=== PATIENT | female | born 1980 | race Caucasian/White ===

== ENCOUNTER 2018-12-14 16:15 | Inpatient (IN) ==
[2018-12-14 17:20] LABS: Basophils # (Auto) 0 K/mcL (0.0-0.3); Basophils % (Auto) 0.1 % (0.0-2.0); Eosinophils # (Auto) 0.1 K/mcL (0.0-0.7); Eosinophils % (Auto) 0.6 % (0.0-7.0); Granulocytes % (Auto) 76.2 % (38.0-78.0); Hematocrit 39.5 % (36.0-48.0); Hemoglobin 12.9 g/dL (12.0-15.0); Lymphocytes # (Auto) 3.5 K/mcL (1.5-4.8); Lymphocytes % (Auto) 18.4 % (15.5-49.0); Mean Cell Volume 91.9 fL (80.0-100.0); Mean Corpuscular HGB Conc 32.8 g/dL (31.0-36.0); Mean Platelet Volume 8.3 fL (7.4-10.4); Monocytes # (Auto) 0.9 K/mcL (0.1-0.9); Monocytes % (Auto) 4.7 % (1.0-12.0); Platelet Count 476 K/mcL (140-440); Red Cell Distribution Width 14.2 % (11.5-14.5); WBC 19.3 K/mcL (4.5-11.0)
[2018-12-14 17:29] LABS: ALT/SGPT 24 U/l (0-40); AST/SGOT 27 U/l (0-37); Albumin 4.3 gm/dL (3.2-5.2); Albumin/Globulin Ratio 1.3 (1.0-2.3); Alkaline Phosphatase 68 U/L (39-117); Bilirubin,Total 0.2 mg/dL (0.0-1.0); Blood Urea Nitrogen 11 mg/dl (6-20); Calcium 9.1 mg/dl (8.6-10.4); Carbon Dioxide 21 mmol/L (22-30); Chloride 104 mmol/L (96-108); Globulin 3.4 gm/dL (2.2-3.7); Glomerular Filtration Rate 111; Glucose 104 mg/dL (70-105); Potassium 4.2 mmol/L (3.3-5.1); Sodium 138 mmol/L (133-145)
[2018-12-14] MEDS: HYDROmorphone 2 MG/ML VIAL IV PRN ×2 (17:53→18:15)
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
[2018-12-14] MEDS ORDERED: PROMETHAZINE 50 MG/ML AMPUL IM ONE (18:28)
[2018-12-14] MEDS ORDERED: PROMETHAZINE 25 MG/ML VIAL IV ONE (18:30)
--- NOTE | 2018-12-14 18:47 | Cat Scan Report ---
CLINICAL INFORMATION: Trauma - closed head injury COMPARISON: None. TECHNIQUE: 2.5 mm helical slices were obtained in the skull base to vertex. Following reconstruction, axial reformatted images were reviewed at bone and parenchymal windows. The exam was performed using radiation dose optimization techniques including, but not limited to, automated exposure control, adjustment of the mA and/or kV according to patient size and use of iterative reconstruction technique. FINDINGS: The ventricles, sulci, fissures, and cisterns are normal in size and configuration. No extra-axial fluid collections are identified. The cerebrum, brainstem and cerebellum are unremarkable. There is no evidence of hemorrhage, mass effect, or edema. Bone windows show no osseous abnormality. IMPRESSION: Normal head CT without contrast. Interpreted and Authenticated by: Jabier Benitez 12/14/18
--- NOTE | 2018-12-14 18:52 | Cat Scan Report ---
CLINICAL INFORMATION: Trauma COMPARISON: None. TECHNIQUE: 2.5 mm helical slices were obtained from the skull base through the superior T2 end plate. Following reconstruction, 2.5 mm sagittal, coronal and axial reformations , with and without disc space angling, were processed. The exam was reviewed at bone and soft tissue windows. The exam was performed using radiation dose optimization techniques including, but not limited to, automated exposure control, adjustment of the mA and/or kV according to patient size and use of iterative reconstruction technique. FINDINGS: Sagittal and coronal reformatted images show the cervical spine to be anatomically aligned. There is no fracture or other osseous abnormality. The cervical cord is normal in contour and caliber without focal lesion. The soft tissues are normal. At C5-6, moderate broad disc spur complex results in moderate central canal and mild right lateral recess narrowing. There is only minimal central bulging of the other disc levels. IMPRESSION: No fracture or other posttraumatic change. Mild degeneration. Lung apices show a small right pneumothorax is involved chest CT report Interpreted and Authenticated by: Jabier Benitez 12/14/18
--- NOTE | 2018-12-14 19:07 | Cat Scan Report ---
CLINICAL INFORMATION: Trauma COMPARISON: None. TECHNIQUE: Enteric contrast was utilized. 80 cc of Isovue-300 were injected intravenously, and 50 seconds later 2.5 mm helical slices were obtained from the lung apices through the subtrochanteric regions of the femurs. Following reconstruction, 2.5 mm sagittal, coronal and axial reformatted images were processed and reviewed at multiple windows and levels. 7 mm MIP reconstructions were obtained through the lungs to optimize nodule detection.The exam was performed using radiation dose optimization techniques including, but not limited to, automated exposure control, adjustment of the mA and/or kV according to patient size and use of iterative reconstruction technique. FINDINGS: Pulmonary parenchymal windows show a large (greater than 50%) right pneumothorax. Patchy airspace disease within the compressed right lung likely represent scattered contusion or atelectasis. There is also minimal scattered contusion or atelectasis in the inferior left lower lobe. No evidence of hemothorax. Mediastinal windows show the noncontrasted thoracic aorta and pulmonary arteries are normal. Aberrant right subclavian artery noted - a normal variant. No mediastinal hemorrhage. No adenopathy. Esophagus grossly normal. Images through the abdomen show the gallbladder is surgically absent. Intrahepatic and common bile ducts are normal caliber. The noncontrasted liver, both adrenal glands, pancreas and spleen are normal. There is a 16 mm fat-containing lesion lateral cortex mid left kidney which should represent a benign angiomyolipoma. The stomach, small bowel, large bowel and appendix are normal. Images of pelvis show urinary bladder uterus and ovaries are normal. Essure closure devices in the region of the fallopian tubes. There is no free air, free fluid or adenopathy. Bone windows but mildly displaced fractures of right L1 and L2 transverse processes. No other fracture seen throughout the chest abdomen or pelvis IMPRESSION: 1. 50% right pneumothorax. Minimal patchy airspace disease within the collapsed right lung likely reflects minimal scattered atelectasis and/or contusion. 2. 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 Acute minimally displaced fractures of the right L1 and L2 transverse processes. 4. Aberrant right subclavian artery - normal variant Interpreted and Authenticated by: Jabier Benitez 12/14/18
--- NOTE | 2018-12-14 19:33 | XRay Report ---
CLINICAL INFORMATION: Chest tube placement for 50% right pneumothorax following trauma COMPARISON: None. FINDINGS: Chest tube overlies the right lung base. Right pneumothorax has resolved. No hemothorax evident. Moderate subcutaneous emphysema noted over the right upper quadrant laterally. Lungs are clear. Cardiac mediastinal silhouette and pulmonary vessels are normal. IMPRESSION: Right chest tube overlying the right lung base. Resolution right pneumothorax. Interpreted and Authenticated by: Jabier Benitez 12/14/18
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
[2018-12-14] MEDS ORDERED: traZODone HCL 50 MG TABLET PO PRN (19:40)
[2018-12-14] MEDS: 0.9 % SODIUM CHLORIDE 1,000 ML IV SCH (21:17)
[2018-12-14] MEDS: DOCUSATE SODIUM 100 MG CAPSULE PO SCH (21:18)
[2018-12-14] MEDS: oxyCODONE HCL 5 MG TABLET PO PRN (21:18)
[2018-12-14] MEDS: 0.9 % SODIUM CHLORIDE 10 ML SYRINGE IV SCH (21:50)
[2018-12-15] MEDS: HYDROmorphone 2 MG/ML VIAL IV PRN ×5 (00:17→19:33)
[2018-12-15] MEDS: oxyCODONE HCL 5 MG TABLET PO PRN ×4 (04:21→21:10)
[2018-12-15 05:12] LABS: Basophils # (Auto) 0 K/mcL (0.0-0.3); Basophils % (Auto) 0.3 % (0.0-2.0); Eosinophils # (Auto) 0 K/mcL (0.0-0.7); Eosinophils % (Auto) 0 % (0.0-7.0); Granulocytes % (Auto) 77.8 % (38.0-78.0); Hematocrit 33.9 % (36.0-48.0); Hemoglobin 11.3 g/dL (12.0-15.0); Lymphocytes # (Auto) 2.1 K/mcL (1.5-4.8); Lymphocytes % (Auto) 16.8 % (15.5-49.0); Mean Cell Volume 90.9 fL (80.0-100.0); Mean Corpuscular HGB Conc 33.3 g/dL (31.0-36.0); Mean Platelet Volume 8.2 fL (7.4-10.4); Monocytes # (Auto) 0.6 K/mcL (0.1-0.9); Monocytes % (Auto) 5.1 % (1.0-12.0); Platelet Count 384 K/mcL (140-440); RBC 3.73 M/mcL (4.00-5.20); Red Cell Distribution Width 14.1 % (11.5-14.5); WBC 12.5 K/mcL (4.5-11.0)
[2018-12-15 05:26] LABS: ALT/SGPT 19 U/l (0-40); AST/SGOT 21 U/l (0-37); Albumin 3.8 gm/dL (3.2-5.2); Albumin/Globulin Ratio 1.3 (1.0-2.3); Alkaline Phosphatase 62 U/L (39-117); Bilirubin,Direct < 0.2 mg/dL (0.0-0.3); Bilirubin,Total 0.4 mg/dL (0.0-1.0); Blood Urea Nitrogen 12 mg/dl (6-20); Calcium 8.7 mg/dl (8.6-10.4); Carbon Dioxide 21 mmol/L (22-30); Chloride 105 mmol/L (96-108); Glomerular Filtration Rate 116; Glucose 117 mg/dL (70-105); Lactate Dehydrogenase 189 U/L (94-250); Phosphorous 3.7 mg/dL (2.7-4.5); Potassium 3.7 mmol/L (3.3-5.1); Sodium 137 mmol/L (133-145); Triglycerides 88 mg/dl (<150); Uric Acid 4.6 mg/dL (2.5-8.0)
[2018-12-15] MEDS: 0.9 % SODIUM CHLORIDE 10 ML SYRINGE IV SCH ×3 (05:45→20:57)
[2018-12-15] MEDS ORDERED: ONDANSETRON 4 MG/2 ML VIAL IV PRN (08:25)
[2018-12-15] MEDS: METOPROLOL SUCCINATE 25 MG TAB.XL.24H PO SCH (08:38)
[2018-12-15] MEDS: TOPIRAMATE 100 MG TABLET PO SCH (08:38)
[2018-12-15] MEDS: DOCUSATE SODIUM 100 MG CAPSULE PO SCH ×2 (08:38→20:56)
--- NOTE | 2018-12-15 08:47 | XRay Report ---
CLINICAL INFORMATION: follow-up for right-sided pneumothorax COMPARISON: 12/14/2018. FINDINGS: Right chest tube overlies the right lung base. There is no evidence of recurrent pneumothorax. Subcutaneous emphysema in the right lateral chest wall is decreased. No hemothorax. Lungs are clear. Heart size, mediastinum and pulmonary vessels are normal. IMPRESSION: Right chest tube in stable position. No evidence recurrent pneumothorax and no hemothorax. Negative Interpreted and Authenticated by: Jabier Benitez 12/15/18
[2018-12-15] MEDS: 0.9 % SODIUM CHLORIDE 1,000 ML IV SCH ×2 (10:24→23:33)
--- NOTE | 2018-12-15 12:20 | General Surgery Progress Note ---
Subjective Patient reports: feels better, still having pain, tolerating a regular diet, flatus, no bowel movement, afebrile Narrative: Note initiated : 12/15/18 at 12:18 pm Service Date, if different from initiated Date: [] Patient: Rita Rivers a 38 y/o F admitted on 12/14/18 for Bucked off a horse. Chief Complaint: [Patient feels better. She is breathing much better. She still has right shoulder right flank and hip and chest wall pain. Her chest tube is functioning appropriately and there is a very small air leak. Chest x- ray shows full expansion of the lung with good position of the chest tube.] Objective Temp Pulse Resp BP Pulse Ox 98.6 F 92 H 16 96/71 95 12/15/18 11:08 12/15/18 11:08 12/15/18 11:08 12/15/18 11:08 12/15/18 11:08 - Additional Data Intake & Output - Last 24 hours: Intake & Output 12/13/18 12/14/18 12/15/18 12/16/18 05:59 05:59 05:59 05:59 Intake Total 60 1344 Output Total 534 150 Balance -474 1194 Weight 169 lb - General physical appearance well developed, well nourished, moderate distress, moderate pain, obese - Eyes PERRL, normal ocular movement - ENT normal pinna, normal nares, normal mucosa, no hearing loss, no congestion - Neck no masses, no bruits, trachea midline, no lymphadenopathy, no venous distension - Respiratory normal expansion, other (splinting bilaterally but with good breath sounds on right side) - Cardiovascular Cardiovascular exam: Present: normal rate and rhythm, RRR, +S1, +S2. Absent: JVD, tachycardia - Abdomen non tender, bowel sounds (present), surgical scars (none), masses (none) - Integumentary no rash, no growths, no abnormal pigmentation - Neurologic normal coordination, normal sensation - Psychiatric oriented to time, oriented to person, oriented to place, speech is normal, memory intact - Labs 12/15/18 04:01 12/15/18 04:01 Diabetes panel 12/14/18 12/15/18 Range/Units 16:43 04:01 Sodium 138 137 (133-145) mmol/L Potassium 4.2 3.7 (3.3-5.1) mmol/L Chloride 104 105 (96-108) mmol/L Carbon Dioxide 21 L 21 L (22-30) mmol/L BUN 11 12 (6-20) mg/dl Creatinine 0.7 0.6 (0.6-1.1) mg/dl Glucose 104 117 H (70-105) mg/dL Calcium 9.1 8.7 (8.6-10.4) mg/dl AST 27 21 (0-37) U/l ALT 24 19 (0-40) U/l Alkaline Phosphatase 68 62 (39-117) U/L Total Protein 7.7 6.8 (5.9-8.4) gm/dL Albumin 4.3 3.8 (3.2-5.2) gm/dL Triglycerides 88 (<150) mg/dl Calcium panel 12/14/18 12/15/18 Range/Units 16:43 04:01 Calcium 9.1 8.7 (8.6-10.4) mg/dl Phosphorus 3.7 (2.7-4.5) mg/dL Albumin 4.3 3.8 (3.2-5.2) gm/dL Pituitary panel 12/14/18 12/15/18 Range/Units 16:43 04:01 Sodium 138 137 (133-145) mmol/L Potassium 4.2 3.7 (3.3-5.1) mmol/L Chloride 104 105 (96-108) mmol/L Carbon Dioxide 21 L 21 L (22-30) mmol/L BUN 11 12 (6-20) mg/dl Creatinine 0.7 0.6 (0.6-1.1) mg/dl Glucose 104 117 H (70-105) mg/dL Calcium 9.1 8.7 (8.6-10.4) mg/dl Adrenal panel 12/14/18 12/15/18 Range/Units 16:43 04:01 Sodium 138 137 (133-145) mmol/L Potassium 4.2 3.7 (3.3-5.1) mmol/L Chloride 104 105 (96-108) mmol/L Carbon Dioxide 21 L 21 L (22-30) mmol/L BUN 11 12 (6-20) mg/dl Creatinine 0.7 0.6 (0.6-1.1) mg/dl Glucose 104 117 H (70-105) mg/dL Calcium 9.1 8.7 (8.6-10.4) mg/dl Total Bilirubin 0.2 0.4 (0.0-1.0) mg/dL AST 27 21 (0-37) U/l ALT 24 19 (0-40) U/l Alkaline Phosphatase 68 62 (39-117) U/L Total Protein 7.7 6.8 (5.9-8.4) gm/dL Albumin 4.3 3.8 (3.2-5.2) gm/dL Assessment and Plan (1) Pneumothorax, closed, traumatic Status: Acute Assessment and plan: Progressing nicely with no evidence of residual pneumothorax. Chest tube is in position with small air leak Current Visit: Yes (2) History of migraine headaches Status: Acute Current Visit: Yes (3) Closed head injury Status: Acute Assessment and plan: No acute neurologic changes or mental changes Current Visit: Yes (4) Contusion, multiple sites Status: Acute Current Visit: Yes - Time Spent With Patient Total time spent is greater than 50% in coordination of care (as documented) at patient's floor/unit and/or counseling patient:
[2018-12-15] MEDS: PROMETHAZINE 25 MG TABLET PO PRN (19:19)
[2018-12-15] MEDS: NORTRIPTYLINE 25 MG CAPSULE PO SCH (20:56)
[2018-12-15] MEDS ORDERED: NORTRIPTYLINE HCL 150 MG PO SCH (21:00)
[2018-12-16] MEDS: HYDROmorphone 2 MG/ML VIAL IV PRN ×3 (01:08→18:26)
[2018-12-16] MEDS: oxyCODONE HCL 5 MG TABLET PO PRN ×4 (04:24→21:08)
[2018-12-16] MEDS: 0.9 % SODIUM CHLORIDE 10 ML SYRINGE IV SCH ×3 (05:04→21:12)
[2018-12-16 06:08] LABS: Basophils # (Auto) 0 K/mcL (0.0-0.3); Basophils % (Auto) 0.2 % (0.0-2.0); Eosinophils # (Auto) 0.1 K/mcL (0.0-0.7); Eosinophils % (Auto) 0.8 % (0.0-7.0); Granulocytes % (Auto) 68.2 % (38.0-78.0); Hematocrit 34.1 % (36.0-48.0); Hemoglobin 11.2 g/dL (12.0-15.0); Lymphocytes # (Auto) 2.3 K/mcL (1.5-4.8); Lymphocytes % (Auto) 24.2 % (15.5-49.0); Mean Cell Volume 93.3 fL (80.0-100.0); Mean Corpuscular HGB Conc 32.7 g/dL (31.0-36.0); Mean Platelet Volume 7.9 fL (7.4-10.4); Monocytes # (Auto) 0.6 K/mcL (0.1-0.9); Monocytes % (Auto) 6.6 % (1.0-12.0); Platelet Count 353 K/mcL (140-440); RBC 3.66 M/mcL (4.00-5.20); Red Cell Distribution Width 13.8 % (11.5-14.5); WBC 9.4 K/mcL (4.5-11.0)
[2018-12-16 06:40] LABS: ALT/SGPT 16 U/l (0-40); AST/SGOT 15 U/l (0-37); Albumin 3.4 gm/dL (3.2-5.2); Albumin/Globulin Ratio 1.1 (1.0-2.3); Alkaline Phosphatase 56 U/L (39-117); Bilirubin,Direct < 0.2 mg/dL (0.0-0.3); Bilirubin,Total 0.3 mg/dL (0.0-1.0); Blood Urea Nitrogen 6 mg/dl (6-20); Calcium 8.1 mg/dl (8.6-10.4); Carbon Dioxide 19 mmol/L (22-30); Chloride 107 mmol/L (96-108); Globulin 3.1 gm/dL (2.2-3.7); Glomerular Filtration Rate 124; Glucose 115 mg/dL (70-105); Lactate Dehydrogenase 175 U/L (94-250); Magnesium 2.1 mg/dL (1.6-2.5); Phosphorous 2.1 mg/dL (2.7-4.5); Potassium 3.8 mmol/L (3.3-5.1); Sodium 136 mmol/L (133-145); Triglycerides 103 mg/dl (<150); Uric Acid 2.7 mg/dL (2.5-8.0)
--- NOTE | 2018-12-16 07:20 | XRay Report ---
CLINICAL INFORMATION: follow-up for right-sided pneumothorax COMPARISON: None. FINDINGS: Surgical chest two remains in stable position overlying the right lung base. No evidence of recurrent pneumothorax or pleural effusion. Minor right basilar atelectasis noted. The remaining lungs are clear. Cardiomediastinal silhouette and pulmonary vessels are normal. Subcutaneous emphysema over the right lateral chest wall has nearly resolved. IMPRESSION: No evidence of recurrent pneumothorax. No pleural effusion. Minor right basilar atelectasis Interpreted and Authenticated by: Jabier Bneitez 12/16/18
[2018-12-16] MEDS ORDERED: TOPIRAMATE 100 MG PO SCH (09:00)
[2018-12-16] MEDS: METOPROLOL SUCCINATE 25 MG TAB.XL.24H PO SCH (10:39)
[2018-12-16] MEDS: DOCUSATE SODIUM 100 MG CAPSULE PO SCH ×2 (10:39→21:08)
[2018-12-16] MEDS: CITALOPRAM 20 MG TABLET PO SCH (10:40)
[2018-12-16] MEDS: TOPIRAMATE 100 MG TABLET PO SCH (10:40)
--- NOTE | 2018-12-16 11:46 | General Surgery Progress Note ---
Subjective Patient reports: feels better, pain is less, tolerating a regular diet, flatus, no bowel movement, afebrile Narrative: Note initiated : 12/16/18 at 11:43 am Service Date, if different from initiated Date: [] Patient: Rita Rivers 38 y/o F admitted on 12/14/18 for Bucked off a horse. Chief Complaint: [patient is stable. She has less chest wall and flank discomfort. She still splints significantly with deep breaths and is very reluctant to use her inspirocare. . Clinically, she does not have any air leak in her chest tube are in the Pleur-evac. Chest x-ray shows full expansion of her lung without residual pneumothorax with the chest tube adequately positioned and with resolution of the subcutaneous air. Objective Temp Pulse Resp BP Pulse Ox 97.8 F 92 H 18 119/86 96 12/16/18 08:00 12/16/18 08:00 12/16/18 08:00 12/16/18 08:00 12/16/18 08:00 - Additional Data Intake & Output - Last 24 hours: Intake & Output 12/14/18 12/15/18 12/16/18 12/17/18 05:59 05:59 05:59 05:59 Intake Total 60 3030 Output Total 534 547 350 Balance -474 2483 -350 Weight 169 lb - General physical appearance well developed, well nourished, moderate distress, moderate pain, obese - Eyes PERRL, normal ocular movement - ENT normal pinna, normal nares, normal mucosa, no hearing loss, no congestion - Neck no masses, no bruits, trachea midline, no lymphadenopathy, no venous distension - Respiratory other (good breath sounds bilaterally, but with splinting on the right side; no rub or wheezes noted) - Cardiovascular Cardiovascular exam: Present: normal rate and rhythm, RRR, +S1, +S2. Absent: JVD, tachycardia - Abdomen non tender, bowel sounds (present), surgical scars (none), masses (none) - Integumentary no rash, no growths, no abnormal pigmentation - Neurologic normal coordination, normal sensation - Musculoskeletal normal gait, normal posture - Psychiatric oriented to time, oriented to person, oriented to place, speech is normal, memory intact - Labs 12/16/18 04:44 12/16/18 04:44 Diabetes panel 12/16/18 Range/Units 04:44 Sodium 136 (133-145) mmol/L Potassium 3.8 (3.3-5.1) mmol/L Chloride 107 (96-108) mmol/L Carbon Dioxide 19 L (22-30) mmol/L BUN 6 (6-20) mg/dl Creatinine 0.5 L (0.6-1.1) mg/dl Glucose 115 H (70-105) mg/dL Calcium 8.1 L (8.6-10.4) mg/dl AST 15 (0-37) U/l ALT 16 (0-40) U/l Alkaline Phosphatase 56 (39-117) U/L Total Protein 6.5 (5.9-8.4) gm/dL Albumin 3.4 (3.2-5.2) gm/dL Triglycerides 103 (<150) mg/dl Calcium panel 12/16/18 Range/Units 04:44 Calcium 8.1 L (8.6-10.4) mg/dl Phosphorus 2.1 L (2.7-4.5) mg/dL Albumin 3.4 (3.2-5.2) gm/dL Pituitary panel 12/16/18 Range/Units 04:44 Sodium 136 (133-145) mmol/L Potassium 3.8 (3.3-5.1) mmol/L Chloride 107 (96-108) mmol/L Carbon Dioxide 19 L (22-30) mmol/L BUN 6 (6-20) mg/dl Creatinine 0.5 L (0.6-1.1) mg/dl Glucose 115 H (70-105) mg/dL Calcium 8.1 L (8.6-10.4) mg/dl Adrenal panel 12/16/18 Range/Units 04:44 Sodium 136 (133-145) mmol/L Potassium 3.8 (3.3-5.1) mmol/L Chloride 107 (96-108) mmol/L Carbon Dioxide 19 L (22-30) mmol/L BUN 6 (6-20) mg/dl Creatinine 0.5 L (0.6-1.1) mg/dl Glucose 115 H (70-105) mg/dL Calcium 8.1 L (8.6-10.4) mg/dl Total Bilirubin 0.3 (0.0-1.0) mg/dL AST 15 (0-37) U/l ALT 16 (0-40) U/l Alkaline Phosphatase 56 (39-117) U/L Total Protein 6.5 (5.9-8.4) gm/dL Albumin 3.4 (3.2-5.2) gm/dL Assessment and Plan (1) Pneumothorax, closed, traumatic Status: Acute Assessment and plan: Progressing nicely with no evidence of residual pneumothorax. Chest tube is in position with small air leak Current Visit: Yes (2) History of migraine headaches Status: Acute Current Visit: Yes (3) Closed head injury Status: Acute Assessment and plan: No acute neurologic changes or mental changes Current Visit: Yes (4) Contusion, multiple sites Status: Acute Current Visit: Yes - Time Spent With Patient Total time spent is greater than 50% in coordination of care (as documented) at patient's floor/unit and/or counseling patient:
[2018-12-16] MEDS: 0.9 % SODIUM CHLORIDE 1,000 ML IV SCH (12:48)
[2018-12-16] MEDS: PROMETHAZINE 25 MG TABLET PO PRN (17:22)
[2018-12-16] MEDS: NORTRIPTYLINE 25 MG CAPSULE PO SCH (21:08)
[2018-12-17] MEDS: 0.9 % SODIUM CHLORIDE 1,000 ML IV SCH ×2 (01:44→12:47)
[2018-12-17] MEDS: oxyCODONE HCL 5 MG TABLET PO PRN ×4 (04:07→21:50)
[2018-12-17] MEDS: 0.9 % SODIUM CHLORIDE 10 ML SYRINGE IV SCH ×3 (04:30→22:06)
[2018-12-17 06:40] LABS: Basophils # (Auto) 0 K/mcL (0.0-0.3); Basophils % (Auto) 0.2 % (0.0-2.0); Eosinophils # (Auto) 0.2 K/mcL (0.0-0.7); Granulocytes % (Auto) 60.7 % (38.0-78.0); Hematocrit 32.7 % (36.0-48.0); Hemoglobin 10.8 g/dL (12.0-15.0); Lymphocytes # (Auto) 3.2 K/mcL (1.5-4.8); Lymphocytes % (Auto) 30.9 % (15.5-49.0); Mean Cell Volume 93.1 fL (80.0-100.0); Mean Corpuscular HGB Conc 32.9 g/dL (31.0-36.0); Mean Platelet Volume 7.9 fL (7.4-10.4); Monocytes # (Auto) 0.6 K/mcL (0.1-0.9); Monocytes % (Auto) 6.2 % (1.0-12.0); Platelet Count 378 K/mcL (140-440); RBC 3.51 M/mcL (4.00-5.20); Red Cell Distribution Width 13.9 % (11.5-14.5); WBC 10.3 K/mcL (4.5-11.0)
--- NOTE | 2018-12-17 06:53 | XRay Report ---
CLINICAL INFORMATION: follow-up for right-sided pneumothorax COMPARISON: None. FINDINGS: Right chest tube overlies the right lung base in stable position. No evidence for recurrent pneumothorax and no pleural effusion. Mild airspace disease developing right base either representing atelectasis or developing infiltrate. Minor atelectasis left base. Heart size, mediastinum and pulmonary vessels are normal. IMPRESSION: No evidence of recurrent pneumothorax or pleural effusion. Minor airspace disease right base increasing likely atelectasis. Interpreted and Authenticated by: Jabier Benitez 12/17/18
[2018-12-17 06:57] LABS: ALT/SGPT 17 U/l (0-40); AST/SGOT 12 U/l (0-37); Albumin 3.4 gm/dL (3.2-5.2); Albumin/Globulin Ratio 1.1 (1.0-2.3); Alkaline Phosphatase 54 U/L (39-117); Bilirubin,Direct < 0.2 mg/dL (0.0-0.3); Bilirubin,Total 0.2 mg/dL (0.0-1.0); Blood Urea Nitrogen 5 mg/dl (6-20); Carbon Dioxide 22 mmol/L (22-30); Chloride 109 mmol/L (96-108); Glomerular Filtration Rate 124; Glucose 103 mg/dL (70-105); Lactate Dehydrogenase 159 U/L (94-250); Potassium 3.5 mmol/L (3.3-5.1); Sodium 141 mmol/L (133-145); Triglycerides 139 mg/dl (<150); Uric Acid 2.6 mg/dL (2.5-8.0)
[2018-12-17] MEDS: METOPROLOL SUCCINATE 25 MG TAB.XL.24H PO SCH (10:33)
[2018-12-17] MEDS: TOPIRAMATE 100 MG TABLET PO SCH (10:33)
[2018-12-17] MEDS: CITALOPRAM 20 MG TABLET PO SCH (10:33)
[2018-12-17] MEDS: DOCUSATE SODIUM 100 MG CAPSULE PO SCH ×2 (10:33→21:50)
--- NOTE | 2018-12-17 16:08 | General Surgery Progress Note ---
Subjective Patient reports: feels better, pain is less, tolerating a regular diet, afebrile Narrative: Note initiated : 12/17/18 at 4:06 pm Service Date, if different from initiated Date: [] Patient: Rita Rivers 38 y/o F admitted on 12/14/18 for Bucked off a horse. Chief Complaint: [patient continues to do well. She is breathing much better. Her chest tube shows no evidence of air leak and chest x-ray shows complete expansion without pneumothorax.] Objective Temp Pulse Resp BP Pulse Ox 98.9 F 94 H 18 109/73 96 12/17/18 12:00 12/17/18 12:00 12/17/18 12:00 12/17/18 12:00 12/17/18 12:00 - Additional Data Intake & Output - Last 24 hours: Intake & Output 12/15/18 12/16/18 12/17/18 12/18/18 05:59 05:59 05:59 05:59 Intake Total 60 3030 2964 1240 Output Total 572 150 1435 700 Balance -474 2483 1884 540 Weight 169 lb 161 lb - General physical appearance well developed, well nourished, no distress - Eyes PERRL, normal ocular movement - ENT normal pinna, normal nares, normal mucosa, no hearing loss, no congestion - Neck no masses, no bruits, trachea midline, no lymphadenopathy, no venous distension - Respiratory other (still with moderate splinting on the right, but with much better air movement bilaterally, right chest tube is adequately positioned) - Cardiovascular Cardiovascular exam: Present: normal rate and rhythm, RRR, +S1, +S2. Absent: JVD, tachycardia - Abdomen non tender, bowel sounds (present), surgical scars (none), masses (none) - Integumentary no rash, no growths, no abnormal pigmentation - Neurologic normal coordination, normal sensation - Musculoskeletal normal gait, normal posture - Psychiatric oriented to time, oriented to person, oriented to place, speech is normal, memory intact - Labs 12/17/18 04:10 12/17/18 04:10 Diabetes panel 12/17/18 Range/Units 04:10 Sodium 141 (133-145) mmol/L Potassium 3.5 (3.3-5.1) mmol/L Chloride 109 H (96-108) mmol/L Carbon Dioxide 22 (22-30) mmol/L BUN 5 L (6-20) mg/dl Creatinine 0.5 L (0.6-1.1) mg/dl Glucose 103 (70-105) mg/dL Calcium 8.0 L (8.6-10.4) mg/dl AST 12 (0-37) U/l ALT 17 (0-40) U/l Alkaline Phosphatase 54 (39-117) U/L Total Protein 6.4 (5.9-8.4) gm/dL Albumin 3.4 (3.2-5.2) gm/dL Triglycerides 139 (<150) mg/dl Calcium panel 12/17/18 Range/Units 04:10 Calcium 8.0 L (8.6-10.4) mg/dl Phosphorus 2.0 L (2.7-4.5) mg/dL Albumin 3.4 (3.2-5.2) gm/dL Pituitary panel 12/17/18 Range/Units 04:10 Sodium 141 (133-145) mmol/L Potassium 3.5 (3.3-5.1) mmol/L Chloride 109 H (96-108) mmol/L Carbon Dioxide 22 (22-30) mmol/L BUN 5 L (6-20) mg/dl Creatinine 0.5 L (0.6-1.1) mg/dl Glucose 103 (70-105) mg/dL Calcium 8.0 L (8.6-10.4) mg/dl Adrenal panel 12/17/18 Range/Units 04:10 Sodium 141 (133-145) mmol/L Potassium 3.5 (3.3-5.1) mmol/L Chloride 109 H (96-108) mmol/L Carbon Dioxide 22 (22-30) mmol/L BUN 5 L (6-20) mg/dl Creatinine 0.5 L (0.6-1.1) mg/dl Glucose 103 (70-105) mg/dL Calcium 8.0 L (8.6-10.4) mg/dl Total Bilirubin 0.2 (0.0-1.0) mg/dL AST 12 (0-37) U/l ALT 17 (0-40) U/l Alkaline Phosphatase 54 (39-117) U/L Total Protein 6.4 (5.9-8.4) gm/dL Albumin 3.4 (3.2-5.2) gm/dL Assessment and Plan (1) Pneumothorax, closed, traumatic Status: Acute Assessment and plan: Progressing nicely with no evidence of residual pneumothorax. Chest tube is in position with no air leak Suction is discontinued Current Visit: Yes (2) History of migraine headaches Status: Acute Current Visit: Yes (3) Closed head injury Status: Acute Assessment and plan: No acute neurologic changes or mental changes Current Visit: Yes (4) Contusion, multiple sites Status: Acute Current Visit: Yes - Time Spent With Patient Total time spent is greater than 50% in coordination of care (as documented) at patient's floor/unit and/or counseling patient:
[2018-12-17] MEDS: POTASSIUM PHOSPHATE 40 MEQ in DEXTROSE 5% IN WATER 500 ML IV SCH ×2 (18:08→23:07)
[2018-12-17] MEDS: NORTRIPTYLINE 25 MG CAPSULE PO SCH (22:03)
[2018-12-18] MEDS: oxyCODONE HCL 5 MG TABLET PO PRN ×4 (04:20→19:07)
[2018-12-18] MEDS: 0.9 % SODIUM CHLORIDE 10 ML SYRINGE IV SCH ×3 (04:27→20:34)
[2018-12-18 05:48] LABS: Basophils # (Auto) 0 K/mcL (0.0-0.3); Basophils % (Auto) 0.3 % (0.0-2.0); Eosinophils # (Auto) 0.3 K/mcL (0.0-0.7); Eosinophils % (Auto) 2.4 % (0.0-7.0); Granulocytes % (Auto) 60.6 % (38.0-78.0); Hematocrit 34.4 % (36.0-48.0); Hemoglobin 11.3 g/dL (12.0-15.0); Lymphocytes # (Auto) 3.3 K/mcL (1.5-4.8); Lymphocytes % (Auto) 29.5 % (15.5-49.0); Mean Cell Volume 92.9 fL (80.0-100.0); Mean Corpuscular HGB Conc 32.9 g/dL (31.0-36.0); Mean Platelet Volume 7.8 fL (7.4-10.4); Monocytes # (Auto) 0.8 K/mcL (0.1-0.9); Monocytes % (Auto) 7.2 % (1.0-12.0); Platelet Count 422 K/mcL (140-440); WBC 11.3 K/mcL (4.5-11.0)
[2018-12-18 06:48] LABS: ALT/SGPT 20 U/l (0-40); AST/SGOT 12 U/l (0-37); Albumin 3.4 gm/dL (3.2-5.2); Albumin/Globulin Ratio 1.1 (1.0-2.3); Alkaline Phosphatase 59 U/L (39-117); Bilirubin,Direct < 0.2 mg/dL (0.0-0.3); Bilirubin,Total 0.3 mg/dL (0.0-1.0); Blood Urea Nitrogen 4 mg/dl (6-20); Calcium 8.5 mg/dl (8.6-10.4); Carbon Dioxide 24 mmol/L (22-30); Chloride 105 mmol/L (96-108); Globulin 3.2 gm/dL (2.2-3.7); Glomerular Filtration Rate 124; Glucose 112 mg/dL (70-105); Lactate Dehydrogenase 163 U/L (94-250); Magnesium 1.9 mg/dL (1.6-2.5); Phosphorous 4.7 mg/dL (2.7-4.5); Potassium 3.7 mmol/L (3.3-5.1); Sodium 141 mmol/L (133-145); Triglycerides 107 mg/dl (<150); Uric Acid 2.5 mg/dL (2.5-8.0)
--- NOTE | 2018-12-18 06:50 | XRay Report ---
CLINICAL INFORMATION: follow-up for right-sided pneumothorax COMPARISON: 12/17/2018 FINDINGS: Right chest tube in stable position overlying the lung bases. Minor right basilar atelectasis noted. No evidence of recurrent pneumothorax or pleural effusion. Remaining lung are clear. Heart size, mediastinum and pulmonary vessels are normal. IMPRESSION: No change in right chest tube. No evidence of recurrent pneumothorax. Minor right basilar atelectasis is increasing Interpreted and Authenticated by: Jabier Benitez 12/18/18
[2018-12-18] MEDS: METOPROLOL SUCCINATE 25 MG TAB.XL.24H PO SCH (08:35)
[2018-12-18] MEDS: TOPIRAMATE 100 MG TABLET PO SCH (08:35)
[2018-12-18] MEDS: CITALOPRAM 20 MG TABLET PO SCH (08:35)
[2018-12-18] MEDS: DOCUSATE SODIUM 100 MG CAPSULE PO SCH ×2 (08:35→20:35)
--- NOTE | 2018-12-18 13:52 | General Surgery Progress Note ---
Subjective Patient reports: feels better, pain is less, afebrile Narrative: Note initiated : 12/18/18 at 1:50 pm Service Date, if different from initiated Date: [] Patient: Rita Rivers 38 y/o F admitted on 12/14/18 for Bucked off a horse. Chief Complaint: [The patient is doing much better. She has left chest wall discomfort and she is breathing easier. She does not have an air leak. Chest x-ray shows full expansion of her lUNG. She does have some mild basilar atelectasis on the right.] Objective Temp Pulse Resp BP Pulse Ox 98.3 F 95 H 16 107/73 95 12/18/18 12:00 12/18/18 12:00 12/18/18 12:00 12/18/18 12:00 12/18/18 12:00 - Additional Data Intake & Output - Last 24 hours: Intake & Output 12/16/18 12/17/18 12/18/18 12/19/18 05:59 05:59 05:59 05:59 Intake Total 3030 2964 2849 Output Total 547 1080 700 Balance 2483 1884 2149 Weight 161 lb 162 lb - General physical appearance well developed, well nourished, no distress, moderate pain - Eyes PERRL, normal ocular movement - ENT normal pinna, normal nares, normal mucosa, no hearing loss, no congestion - Neck no masses, no bruits, trachea midline, no lymphadenopathy, no venous distension - Respiratory other (decreased breath sounds right base; no rales, rhonchi) - Cardiovascular Cardiovascular exam: Present: normal rate and rhythm, RRR, +S1, +S2. Absent: JVD, tachycardia - Abdomen non tender (abdominal exam is totally benign), bowel sounds (present), surgical scars (none), masses (none) - Integumentary no rash, no growths, no abnormal pigmentation - Psychiatric oriented to time, oriented to person, oriented to place, speech is normal, memory intact - Labs 12/18/18 04:20 12/18/18 04:20 Diabetes panel 12/18/18 Range/Units 04:20 Sodium 141 (133-145) mmol/L Potassium 3.7 (3.3-5.1) mmol/L Chloride 105 (96-108) mmol/L Carbon Dioxide 24 (22-30) mmol/L BUN 4 L (6-20) mg/dl Creatinine 0.5 L (0.6-1.1) mg/dl Glucose 112 H (70-105) mg/dL Calcium 8.5 L (8.6-10.4) mg/dl AST 12 (0-37) U/l ALT 20 (0-40) U/l Alkaline Phosphatase 59 (39-117) U/L Total Protein 6.6 (5.9-8.4) gm/dL Albumin 3.4 (3.2-5.2) gm/dL Triglycerides 107 (<150) mg/dl Calcium panel 12/18/18 Range/Units 04:20 Calcium 8.5 L (8.6-10.4) mg/dl Phosphorus 4.7 H (2.7-4.5) mg/dL Albumin 3.4 (3.2-5.2) gm/dL Pituitary panel 12/18/18 Range/Units 04:20 Sodium 141 (133-145) mmol/L Potassium 3.7 (3.3-5.1) mmol/L Chloride 105 (96-108) mmol/L Carbon Dioxide 24 (22-30) mmol/L BUN 4 L (6-20) mg/dl Creatinine 0.5 L (0.6-1.1) mg/dl Glucose 112 H (70-105) mg/dL Calcium 8.5 L (8.6-10.4) mg/dl Adrenal panel 12/18/18 Range/Units 04:20 Sodium 141 (133-145) mmol/L Potassium 3.7 (3.3-5.1) mmol/L Chloride 105 (96-108) mmol/L Carbon Dioxide 24 (22-30) mmol/L BUN 4 L (6-20) mg/dl Creatinine 0.5 L (0.6-1.1) mg/dl Glucose 112 H (70-105) mg/dL Calcium 8.5 L (8.6-10.4) mg/dl Total Bilirubin 0.3 (0.0-1.0) mg/dL AST 12 (0-37) U/l ALT 20 (0-40) U/l Alkaline Phosphatase 59 (39-117) U/L Total Protein 6.6 (5.9-8.4) gm/dL Albumin 3.4 (3.2-5.2) gm/dL Assessment and Plan (1) Pneumothorax, closed, traumatic Status: Acute Assessment and plan: Right sided chest tube was removed. Patient is encouraged to ambulate. It is anticipated that she'll be discharged tomorrow. Current Visit: Yes (2) History of migraine headaches Status: Acute Current Visit: Yes (3) Closed head injury Status: Acute Assessment and plan: No acute neurologic changes or mental changes Current Visit: Yes (4) Contusion, multiple sites Status: Acute Current Visit: Yes - Time Spent With Patient Total time spent is greater than 50% in coordination of care (as documented) at patient's floor/unit and/or counseling patient:
[2018-12-18] MEDS ORDERED: MAG HYDROX/AL HYDROX/SIMETH 30 ML ORAL.SUSP PO PRN (18:57)
[2018-12-18] MEDS: NORTRIPTYLINE 25 MG CAPSULE PO SCH (20:34)
[2018-12-19] MEDS: oxyCODONE HCL 5 MG TABLET PO PRN ×2 (04:54→10:19)
[2018-12-19] MEDS: 0.9 % SODIUM CHLORIDE 10 ML SYRINGE IV SCH (04:55)
[2018-12-19 05:40] LABS: Basophils # (Auto) 0 K/mcL (0.0-0.3); Basophils % (Auto) 0.4 % (0.0-2.0); Eosinophils # (Auto) 0.3 K/mcL (0.0-0.7); Eosinophils % (Auto) 2.8 % (0.0-7.0); Hematocrit 31.7 % (36.0-48.0); Hemoglobin 10.5 g/dL (12.0-15.0); Lymphocytes # (Auto) 3.1 K/mcL (1.5-4.8); Lymphocytes % (Auto) 26.3 % (15.5-49.0); Mean Corpuscular HGB Conc 33.1 g/dL (31.0-36.0); Mean Platelet Volume 7.7 fL (7.4-10.4); Monocytes # (Auto) 0.9 K/mcL (0.1-0.9); Monocytes % (Auto) 7.5 % (1.0-12.0); Platelet Count 457 K/mcL (140-440); RBC 3.52 M/mcL (4.00-5.20); Red Cell Distribution Width 13.3 % (11.5-14.5); WBC 11.7 K/mcL (4.5-11.0)
[2018-12-19] MEDS: DOCUSATE SODIUM 100 MG CAPSULE PO SCH (08:08)
[2018-12-19] MEDS: TOPIRAMATE 100 MG TABLET PO SCH (08:08)
[2018-12-19] MEDS: CITALOPRAM 20 MG TABLET PO SCH (08:08)
[2018-12-19] MEDS: METOPROLOL SUCCINATE 25 MG TAB.XL.24H PO SCH (08:08)
--- NOTE | 2018-12-19 08:21 | XRay Report ---
CLINICAL INFORMATION: follow-up for right-sided pneumothorax COMPARISON: None. FINDINGS: Right chest tube now. No evidence of recurrent pneumothorax or pleural effusion. Minor right basilar atelectasis as improved. Minor left basilar atelectasis noted. Heart size, mediastinum and pulmonary vessels are normal. IMPRESSION: Minor bibasilar atelectasis. No evidence of recurrent pneumothorax Interpreted and Authenticated by: Jabier Benitez 12/19/18
--- NOTE | 2018-12-19 11:21 | Discharge Summary ---
Providers - Providers Patient information: Note initiated : 12/19/18 at 11:17 am Service Date, if different from initiated Date: [] Patient: Rita Rivers 38 y/o F admitted on 12/14/18 for Bucked off a horse. Chief Complaint: [] Date of admission: 12/14/18 Discharge date: 12/19/18 Attending physician: Сергей Sultana Hospitalization Hospital course: 38-year-old female was admitted with traumatic tension pneumothorax Right chest. The patient was driving a horse which stopped suddenly, causing her to fall forward off the horse, hitting the ground with her right back and shoulder. She presented to the emergency room shortly thereafter with complaints of neck and back pain and difficulty breathing. CT of the head was unremarkable as well as CT of the neck. CT of the chest showed a tension pneumothorax on the right side with compression of the mediastinum to the left. No bony abnormalities were noted. She had benign abdominal exam. An abdominal CT was normal. Patient had emergency right closed tube thoracostomy performed under local anesthesia in the emergency room. She had prompt reexpansion of her lung. She has been monitored in the hospital on continuous suction. After 48 hours. The air leak ceased and the patient was placed on waterseal. She has done well and chest x-ray today shows no evidence of pneumothorax. She has mild basilar atelectasis on the right due to splinting but she has been using spiral care with some improvement. She is clinically stable at this time and is discharged home in stable satisfactory condition. Discharge diagnosis: right tension pneumothorax Secondary discharge diagnosis: Blunt trauma right chest. Blunt trauma of back and right hip Reason for admission: closed chest trauma with pneumothorax Procedures: Right closed tube thoracostomy Pertinent studies/significant findings: CT of head, neck, chest and abdomen Complications: None Exam Temp Pulse Resp BP Pulse Ox 97.8 F 96 H 12 134/88 94 12/19/18 06:45 12/19/18 06:45 12/19/18 06:45 12/19/18 06:45 12/19/18 06:45 - General physical appearance well developed, well nourished, no distress - Eyes PERRL, normal ocular movement - ENT normal pinna, normal nares, normal mucosa, no hearing loss, no congestion - Head Head exam IM: Present: atraumatic, normocephalic - Neck no masses, no bruits, trachea midline, no lymphadenopathy, no venous distension, other (no neck tenderness noted; full range of motion) - Cardiovascular Cardiovascular exam IM: Present: normal rate and rhythm - Respiratory normal expansion, normal respiratory effort, clear to auscultation, other (. Excellent breath sounds bilaterally without rub, or wheezes) - Abdomen Abdomen: Present: soft, non tender, bowel sounds Hernia: Present: none - Genitourinary Present: normal external genitalia - Integumentary Present: no rash, no growths, no abnormal pigmentation - Neurologic Present: normal coordination, normal sensation - Musculoskeletal Present: normal posture, other (. Left below the knee prosthesis) - Psychiatric Present: oriented to time, oriented to person, oriented to place, speech is normal, memory intact Discharge Plan - Patient/Caregiver Discharge Instructions Activity: increase activity as tolerated, other (. Do not shower for the next 4 days; use sponge baths) Diet: Regular Diet Additional Instructions: Use inspirometer every hour while awake for the next week with a goal of 2000 cc Please do not get the dressing wet on the right chest Prescriptions: oxyCODONE HCL/ACETAMINOPHEN [Endocet 10-325 mg Tablet] 1 tab PO Q4H PRN #60 tablet PRN Reason: Pain - Follow up Plan Follow up with: Christine Dickey ARNP [Primary Care Provider] - Сергей Sultana MD [Physician] - Disposition: Home, Self-Care Prognosis: Good Rehab Potential: Good I certify that the patient requires SNF services.: No Overall status at discharge: patient is progressing back to baseline Pending Studies Resuscitation Status Full Code Diet Regular Diet Start Sat Dec 14 1942 Al Hydrox/Mg Hydrox/Simethicone (Maalox) 30 ml PO Q4HP PRN PRN Reason: Dyspepsia Last Admin: 12/18/18 19:07 Dose: 30 ml Documented by: MELI Citalopram Hydrobromide (Celexa) 20 mg PO DAILY [facility] Last Admin: 12/19/18 08:08 Dose: 20 mg Documented by: [email or web address] Admin: 12/18/18 08:35 Dose: 20 mg Documented by: Admin: 12/17/18 10:33 Dose: 20 mg Documented by: Admin: 12/16/18 10:40 Dose: 20 mg Documented by: PATIENCE Docusate Sodium (Colace) 100 mg PO BID [facility] Last Admin: 12/19/18 08:08 Dose: 100 mg Documented by: Admin: 12/18/18 20:35 Dose: Not Given Documented by: Admin: 12/18/18 08:35 Dose: 100 mg Documented by: Admin: 12/17/18 21:50 Dose: 100 mg Documented by: Admin: 12/17/18 10:33 Dose: 100 mg Documented by: Admin: 12/16/18 21:08 Dose: 100 mg Documented by: Admin: 12/16/18 10:39 Dose: 100 mg Documented by: Admin: 12/15/18 20:56 Dose: 100 mg Documented by: Admin: 12/15/18 08:38 Dose: 100 mg Documented by: Admin: 12/14/18 21:18 Dose: 100 mg Documented by: CHELSI Hydromorphone HCl (Dilaudid) 1 mg IV Q2HP PRN PRN Reason: PAIN LEVEL > 6 Last Admin: 12/16/18 18:26 Dose: 1 mg Documented by: Admin: 12/16/18 07:15 Dose: 1 mg Documented by: Admin: 12/16/18 01:08 Dose: 1 mg Documented by: Admin: 12/15/18 19:33 Dose: 1 mg Documented by: Admin: 12/15/18 14:37 Dose: 1 mg Documented by: Admin: 12/15/18 10:23 Dose: 1 mg Documented by: Admin: 12/15/18 07:11 Dose: 1 mg Documented by: Admin: 12/15/18 00:17 Dose: 1 mg Documented by: CHELSI Metoprolol Succinate (Toprol Xl) 25 mg PO DAILY [facility] Admin: 12/19/18 08:08 Dose: 25 mg Documented by: Admin: 12/18/18 08:35 Dose: 25 mg Documented by: Admin: 12/17/18 10:33 Dose: 25 mg Documented by: Admin: 12/16/18 10:39 Dose: 25 mg Documented by: Admin: 12/15/18 08:38 Dose: Not Given Documented by: LYNN Nortriptyline HCl (Pamelor) 150 mg PO HS [facility] Last Admin: 12/18/18 20:34 Dose: 150 mg Documented by: Admin: 12/17/18 22:03 Dose: 150 mg Documented by: Admin: 12/16/18 21:08 Dose: 150 mg Documented by: Admin: 12/15/18 20:56 Dose: 150 mg Documented by: SAVANA Oxycodone HCl (Roxicodone) 10 mg PO Q4HP PRN PRN Reason: PAIN LEVEL 3-6 Last Admin: 12/19/18 10:19 Dose: 10 mg Documented by: Admin: 12/19/18 04:54 Dose: 10 mg Documented by: Admin: 12/18/18 19:07 Dose: 10 mg Documented by: Admin: 12/18/18 12:55 Dose: 10 mg Documented by: Admin: 12/18/18 08:34 Dose: 10 mg Documented by: Admin: 12/18/18 04:20 Dose: 10 mg Documented by: Admin: 12/17/18 21:50 Dose: 10 mg Documented by: Admin: 12/17/18 17:07 Dose: 10 mg Documented by: Admin: 12/17/18 10:32 Dose: 10 mg Documented by: Admin: 12/17/18 04:07 Dose: 10 mg Documented by: Admin: 12/16/18 21:08 Dose: 10 mg Documented by: Admin: 12/16/18 16:10 Dose: 10 mg Documented by: Admin: 12/16/18 10:39 Dose: 10 mg Documented by: Admin: 12/16/18 04:24 Dose: 10 mg Documented by: Admin: 12/15/18 21:10 Dose: 10 mg Documented by: Admin: 12/15/18 16:36 Dose: 10 mg Documented by: Admin: 12/15/18 08:52 Dose: 10 mg Documented by: Admin: 12/15/18 04:21 Dose: 5 mg Documented by: Admin: 12/14/18 21:18 Dose: 10 mg Documented by: CHELSI Promethazine HCl (Phenergan) 25 mg PO Q4HP PRN PRN Reason: Nausea And Vomiting Last Admin: 12/16/18 17:22 Dose: 25 mg Documented by: Admin: 12/15/18 19:19 Dose: 25 mg Documented by: SAVANA Sodium Chloride (Saline Flush) 10 ml IV Q8 [facility] Last Admin: 12/19/18 04:55 Dose: 10 ml Documented by: Admin: 12/18/18 20:34 Dose: 10 ml Documented by: Admin: 12/18/18 12:29 Dose: Not Given Documented by: Admin: 12/18/18 04:27 Dose: Not Given Documented by: Admin: 12/17/18 22:06 Dose: Not Given Documented by: Admin: 12/17/18 12:47 Dose: Not Given Documented by: Admin: 12/17/18 04:30 Dose: Not Given Documented by: Admin: 12/16/18 21:12 Dose: Not Given Documented by: Admin: 12/16/18 15:51 Dose: Not Given Documented by: Admin: 12/16/18 05:04 Dose: Not Given Documented by: Admin: 12/15/18 20:57 Dose: Not Given Documented by: Admin: 12/15/18 13:05 Dose: Not Given Documented by: Admin: 12/15/18 05:45 Dose: Not Given Documented by: Admin: 12/14/18 21:50 Dose: Not Given Documented by: CHELSI Topiramate (Topamax) 100 mg PO DAILY [facility] Last Admin: 12/19/18 08:08 Dose: 100 mg Documented by: Admin: 12/18/18 08:35 Dose: 100 mg Documented by: Admin: 12/17/18 10:33 Dose: 100 mg Documented by: Admin: 12/16/18 10:40 Dose: 100 mg Documented by: Admin: 12/15/18 08:38 Dose: 100 mg Documented by: LYNN Trazodone HCl (Desyrel) 50 mg PO HSP PRN PRN Reason: Insomnia Last Admin: 12/14/18 21:18 Dose: 50 mg Documented by: CHELSI Shift Summary 12/19/18 05:16 Shift Summary by Cintia Strong Patient alert and oriented x4. Slept well this shift. Medicated with Roxicodone 10mg twice. Also medicated with Maalox for heartburn with good relief. Up with SBA to hallway. Walked 150 ft last night. Uses IS 1250 level. IV on RFA kept saline locked. Patient has Left BKA, prosthesis put on when ambulating. Previous chest tube on right side of back- dressing CDI. VSS. Initialized on 12/19/18 05:16 - END OF NOTE
--- NOTE | 2018-12-19 12:17 | Antibiotic Stewardship Consult ---
Antibiotic Stewardship Consult Reason for consult: Penicillin allergy Allergy History: Allergies Allergy/AdvReac Type Severity Reaction Status Date / Time sumatriptan [From Imitrex] Allergy Severe Anaphylaxis Verified 12/14/18 21:04 Penicillins Allergy Mild HIVES/ITCH Verified 12/14/18 21:04 acetaminophen AdvReac Mild DIARRHEA/VO Verified 12/14/18 16:16 MITTING ibuprofen AdvReac Mild DIARRHEA/VO Verified 12/14/18 16:16 MITTING methylprednisolone AdvReac Mild MIGRAINES Verified 12/14/18 16:16 [From MEDROL] ondansetron AdvReac Mild Vomiting Verified 12/14/18 21:04 [From Zofran (as hydrochloride)] Narrative: Pt reports history of itching with penicillin about a year ago. She did not have rash, or any other symptoms. Based on that information, she is at low risk for penicillin allergy testing. I shared information with her about what penicillin allergy is, what is its significance, and risks of second-line antibiotics when penicillins can't be used. I shared a hand-out from [employer]. My clinic will reach out to her after discharge to see if she is interested in penicillin allergy testing.
--- NOTE | 2019-01-06 11:34 | General Surgery Procedure Note ---
Date of procedure: Note initiated : 01/06/19 at 11:32 am Service Date, if different from initiated Date: [12/14/18] Pre-op diagnosis: traumatic tension right pneumothorax Post-op diagnosis: other (traumatic tension right pneumothorax) Procedure: Right closed tube thoracostomy Findings: Large volume free air and right chest with compression of the heart and mediastinum to the left and downward displacement of the diaphragm Grafts/Implants: 32 Irish straight Gurley chest tube Anesthesia: local Surgeon: Сергей Sultana Estimated blood loss: 3 Pathology: none sent Description of procedure: The procedure was done under local anesthesia in the emergency room. The patient was counseled for placement of closed thoracostomy tube under local anesthesia. The right anterolateral chest wall was prepped with ChloraPrep. A sterile field was established. Local infiltration was carried out over the T6 i nterspace in the mid axillary line. Infiltration was also carried out over the T5 interspace. Limited incision was made over the T6 interspace with a 15 blade. Using small mosquito clamp, a tunnel was then made over the T6 rib into the T5 interspace. The clamps were 2 short because of the patient's size. Another clamp was obtained from the operating room and the pleural cavity was punctured. A #32 straight Gurley chest tube was positioned and temporarily secured until a chest x-ray was done to assure adequate position. The tube was connected to Pleur-evac waterseal. Once confirmation of the position of the tube was obtained. The tube was sutured and with 0 silk. It was then secured to the chest wall with silk tape. The connections on the tube were reinforced using silk tape to prevent separation of the tube. The final chest x-ray was performed and 2 position was adequate. Patient was attached to wall suction and the fluctuations in the tube were confirmed. Patient tolerated procedure well. Condition: stable Disposition: floor
== END 2018-12-19 13:05 | disposition home or self-care (01) | DRG 201 ==
LOC: ED 16:15 → MEDSUR 20:10
PROVIDERS: ADMIT Family Medicine Adult Medicine; ATTEND Family Medicine Adult Medicine